=== PATIENT | male | born 1985 | race Caucasian/White ===

== ENCOUNTER 2016-09-09 08:46 | Emergency (ER) | payer MEDICAID ==
[2016-09-09] MEDS ORDERED: SODIUM CHLORIDE 0.9% 1,000 ML ONE ×2 (09:51→11:21)
[2016-09-09] MEDS ORDERED: ONDANSETRON 4 MG VIAL ONE (11:30)
[2016-09-09] MEDS ORDERED: KETOROLAC 30 MG/ML VIAL ONE (11:31)
== END 2016-09-09 13:04 | disposition home or self-care (01) ==
LOC: ER 08:46
CPT/HCPCS: 74022; 96361; 96374; 96375